=== PATIENT | male | born 1965 | race Caucasian/White ===

== ENCOUNTER 2019-08-12 20:42 | Emergency (ER) | payer BC, OTHER ==
[~2019-08-12] VITALS: Ht 177.8 cm; Wt 136.1 kg
[~2019-08-12 20:42] MED LIST: LISI40TA4 PO
[2019-08-12 21:10] VITALS: BP_SYST 186
--- NOTE | 2019-08-12 21:15 | NUR ---
Pt ambulatory to bed 8 for evaluation
--- NOTE | 2019-08-12 21:50 | NUR ---
Pt's SBP ranging from 200 - 155, currently asleep / resting on gurney rails up
[2019-08-12] MEDS ORDERED: METF1000 PO (23:29)
[2019-08-12] MEDS ORDERED: LISINOPRIL 10 MG TABLET (PRINIVIL) PO ONE (23:45)
--- NOTE | 2019-08-12 23:45 | NUR ---
Dr. Santos bedside for Pt eval
--- NOTE | 2019-08-12 23:54 | NUR ---
ACCU Checked at 324
--- NOTE | 2019-08-12 23:55 | NUR ---
Pt BIB family to ED C/O high blood pressure when he was at urgent care today. The patient admits he has not taken his blood pressure medications and diabetes medications for two weeks because he ran out and did not see his PCP. The patient complains of a left lower toothache for 3 weeks. The toothache is rated 6/10 intensity No other complaints No s/s of acute distress Resting on gurney rails up
[2019-08-13] LABS: BASOPHILS # (AUTO) 0.1 K/uL (0.0-0.2); BASOPHILS % (AUTO) 0.9 % (0.0-2.0); EOSINOPHILS # (AUTO) 0.1 K/uL (0.0-0.4); EOSINOPHILS % (AUTO) 1.8 % (0.0-4.0); HEMATOCRIT 41.3 % (36-54); HEMOGLOBIN 13.9 g/dL (14.0-18.0); LYMPHOCYTES # (AUTO) 2.6 K/uL (1.0-5.5); LYMPHOCYTES % (AUTO) 41.3 % (20.5-51.5); MEAN CORPUSCULAR HEMOGLOBIN 30 pg (27-31); MEAN CORPUSCULAR HGB CONC 34 % (32-36); MEAN CORPUSCULAR VOLUME 90 fL (79.0-98.0); MONOCYTES # (AUTO) 0.5 K/uL (0.0-1.0); MONOCYTES % (AUTO) 8.5 % (1.7-9.3); NEUTROPHILS % (AUTO) 47.5 % (40.0-70.0); PLATELET COUNT (AUTO) 190 K/uL (130-430); RED BLOOD CELL COUNT(AUTO) 4.58 MIL/uL (4.2-6.2); RED CELL DISTRIBUTION WIDTH 14.1 % (9.0-15.0); WHITE BLOOD COUNT (AUTO) 6.3 K/uL (4.8-10.8)
[2019-08-13 00:18] LABS: CALCIUM 8.3 mg/dL (8.4-11.0); CREATININE 1.48 mg/dL (0.55-1.30); POTASSIUM 3.6 mmol/L (3.5-5.1)
[2019-08-13 00:24] LABS: ALBUMIN 3.1 g/dL (3.4-4.8); TOTAL BILIRUBIN 0.5 mg/dL (0.0-1.0)
[2019-08-13] MEDS ORDERED: NACL 0.9% 1,000 ML IV ONE (00:45)
--- NOTE | 2019-08-13 00:45 | NUR ---
VSS no s/s of acute distress Resting on gurney rails up
[2019-08-13 02:02] LABS: BILIRUBIN,URINE NEGATIVE (NEGATIVE); CLARITY/URINE CLEAR (CLEAR); COLOR,URINE YELLOW (YELLOW); GLUCOSE,URINE 3+ (NEGATIVE); KETONES,URINE NEGATIVE (NEGATIVE); LEUKOCYTE ESTERASE ,URINE NEGATIVE (NEGATIVE); NITRITE, URINE NEGATIVE (NEGATIVE); PH,URINE 5.5 (5.0-8.0); PROTEIN URINE 3+ (NEGATIVE); UROBILINOGEN,URINE 0.2 (0.2-1.0)
[2019-08-13 02:03] LABS: BLOOD, URINE TRACE (NEGATIVE)
--- NOTE | 2019-08-13 02:05 | NUR ---
IVF therapy well tolerated, Pt stated "feeling better"
[2019-08-13 02:16] LABS: BACTERIA,URINE FEW /HPF (None Seen); WBC,URINE 0-3 /HPF (0-3)
[2019-08-13 02:48] VITALS: BP_SYST 186
--- NOTE | 2019-08-13 02:48 | NUR ---
Patient given written and verbal discharge instructions and verbalizes understanding. ER MD Dr. Santos discussed with patient the results and treatment provided. Patient in stable condition. ID arm band removed. IV catheter removed intact and dressing applied, no active bleeding. Rx of metformin and hydrochlorothiazide given. Patient educated on pain management and to follow up with PMD. Pain Scale 0/10. Opportunity for questions provided and answered. Medication side effect fact sheet provided.
== END 2019-08-13 02:48 | disposition home or self-care (01) ==
LOC: SED 20:42
DX: E11.65 Type 2 diabetes mellitus with hyperglycemia (principal); I10 Essential (primary) hypertension; K02.9 Dental caries, unspecified; Z79.84 Long term (current) use of oral hypoglycemic drugs; Z79.899 Other long term (current) drug therapy
CPT/HCPCS: 36415; 80053; 81000; 82962; 85025; 96360; 99283; J7030